=== PATIENT | female | born 1985 | race Caucasian/White ===

== ENCOUNTER 2016-10-30 07:57 | Emergency (ER) | payer SELFPAY ==
[~2016-10-30] VITALS: Ht 162.6 cm; Wt 68.0 kg
[2016-10-30 08:10] VITALS: BP 136/97
[2016-10-30] MEDS ORDERED: HYDROcodone-ACET 10/325MG TAB PO ONE (09:15)
== END 2016-10-30 09:48 | disposition home or self-care (01) ==
LOC: ER 07:57
DX: S42.302A Unspecified fracture of shaft of humerus, left arm, initial encounter for closed fracture (principal); W19.XXXA Unspecified fall, initial encounter; Y93.01 Activity, walking, marching and hiking; Y99.8 Other external cause status; Y92.89 Other specified places as the place of occurrence of the external cause

== ENCOUNTER 2021-01-23 17:59 | Emergency (ER) | payer SELFPAY ==
[~2021-01-23] VITALS: Ht 167.6 cm; Wt 90.7 kg
[2021-01-23] MEDS ORDERED: cloNIDine 0.1 mg/24hr 7 DAY PATCH TD ONE (19:00)
[2021-01-23] MEDS ORDERED: cloNIDine HCL 0.1 MG TAB ONE (20:56)
[2021-01-23] MEDS ORDERED: cloNIDine HCL 0.1 MG TAB PO ONE (21:30)
[2021-01-23 21:34] VITALS: BP 173/107
== END 2021-01-23 21:59 | disposition home or self-care (01) ==
LOC: ER 17:59
DX: R51.9 Headache, unspecified (principal); I10 Essential (primary) hypertension
CPT/HCPCS: 70450

== ENCOUNTER 2021-01-25 02:07 | Emergency (ER) | payer SELFPAY ==
[~2021-01-25] VITALS: Ht 167.6 cm; Wt 90.7 kg
[2021-01-25] MEDS ORDERED: KETOROLAC TROMETH 60MG/2ML VIAL IM ONE (03:30)
[2021-01-25] MEDS ORDERED: methylPREDNISolone SOD SUCC 125 MG/2 ML VL IM ONE (03:30)
[2021-01-25] MEDS ORDERED: ONDANSETRON ODT 4 MG TAB PO ONE (03:30)
[2021-01-25 03:54] VITALS: BP 146/94
== END 2021-01-25 04:51 | disposition home or self-care (01) ==
LOC: ER 02:07
DX: R51.9 Headache, unspecified (principal); R42 Dizziness and giddiness; I10 Essential (primary) hypertension; E66.9 Obesity, unspecified; Z68.32 Body mass index [BMI] 32.0-32.9, adult
CPT/HCPCS: 96372; 99284; J1885; J2930; Q0162

== ENCOUNTER 2021-03-24 11:08 | Emergency (ER) | payer SELFPAY ==
[~2021-03-24] VITALS: Ht 167.6 cm; Wt 90.7 kg
[2021-03-24 11:58] VITALS: BP 152/102
== END 2021-03-24 12:12 | disposition home or self-care (01) ==
LOC: ER 11:08
DX: I10 Essential (primary) hypertension (principal); Z76.0 Encounter for issue of repeat prescription

== ENCOUNTER 2023-10-07 15:20 | Emergency (ER) | payer OTHER ==
[~2023-10-07] VITALS: Ht 167.6 cm; Wt 84.8 kg
[2023-10-07 15:21] VITALS: BP 167/95; PULSE 80; RESP 18; O2SAT 98
[2023-10-07 16:08] LABS: Basophils # (auto) 0 10 ^3/uL (0-0.2); Eosinophils # (auto) 0.2 10 ^3/uL (0-0.8); Mean Corpuscular Volume 75.8 fL (80.0-100.0); Monocytes # (auto) 0.4 10 ^3/uL (0-1.3); Monocytes % (auto) 6.4 % (0.0-12.0); Neutrophils # (auto) 4.6 10 ^3/uL (1.6-8.6)
[2023-10-07 16:10] LABS: Basophils % (auto) 0.2 % (0.0-2.0); Eosinophils % (auto) 2.3 % (0.0-7.0); Hematocrit 32.8 % (36.0-46.0); Hemoglobin 10.1 g/dL (12.2-16.2); Lymphocytes # (auto) 1.6 10 ^3/uL (0.4-5.4); Mean Corpuscular Hemoglobin 23.3 pg (28.0-32.0); Mean Corpuscular Hgb Conc. 30.7 g/dL (32.0-36.0); Neutrophils % (auto) 67.1 % (37.0-80.0); Red Blood Cells 4.33 10^6/uL (4.0-5.20); White Blood Cell 6.8 10^3/uL (4.4-10.8)
[2023-10-07 16:19] LABS: Chloride 108 mmol/L (98-107); Potassium 3.8 mmol/L (3.5-5.1); Sodium 139 mmol/L (136-145)
[2023-10-07 16:20] LABS: Anion Gap 5 (5-15); Carbon Dioxide 26 mmol/L (20-30)
[2023-10-07 16:21] LABS: Calcium 9.2 mg/dL (8.5-10.1)
[2023-10-07 16:26] LABS: BUN/Creatinine Ratio 13.1 (10.0-20.0); Blood Urea Nitrogen 8 mg/dL (9-23); Glucose 100 mg/dL (74-106)
[2023-10-07] MEDS: cloNIDine HCL 0.1 MG TAB PO ONE ×2 (17:05→17:15)
[2023-10-07] MEDS: KETOROLAC TROMETH 60MG/2ML VIAL IM ONE (17:12)
== END 2023-10-07 19:13 | disposition left against medical advice (07) ==
LOC: ER 15:23
DX: I10 Essential (primary) hypertension (principal); R51.9 Headache, unspecified; Z98.890 Other specified postprocedural states
CPT/HCPCS: 36415; 80048; 84484; 85025; 96372; 99283; J1885

== ENCOUNTER 2023-12-04 23:08 | Emergency (ER) | payer OTHER ==
[~2023-12-04] VITALS: Ht 165.1 cm; Wt 160.0 kg
[2023-12-04 23:08] VITALS: BP 154/98; RESP 20; O2SAT 100
[2023-12-04 23:13] VITALS: PULSE 85
[2023-12-04 23:39] LABS: Basophils # (auto) 0 10 ^3/uL (0-0.2); Basophils % (auto) 0.5 % (0.0-2.0); Eosinophils # (auto) 0.2 10 ^3/uL (0-0.8); Hematocrit 33.9 % (36.0-46.0); Hemoglobin 10.7 g/dL (12.2-16.2); Lymphocytes # (auto) 1.9 10 ^3/uL (0.4-5.4); Lymphocytes % (auto) 29.2 % (10.0-50.0); Mean Corpuscular Hgb Conc. 31.7 g/dL (32.0-36.0); Mean Corpuscular Volume 75.5 fL (80.0-100.0); Monocytes # (auto) 0.4 10 ^3/uL (0-1.3); Monocytes % (auto) 5.9 % (0.0-12.0); Neutrophils # (auto) 4.1 10 ^3/uL (1.6-8.6); Neutrophils % (auto) 61.4 % (37.0-80.0); Nucleated Red Blood Cells % 0.1 %; Red Blood Cells 4.48 10^6/uL (4.0-5.20); Red Cell Distribution Width 17.6 % (11.8-14.3); White Blood Cell 6.6 10^3/uL (4.4-10.8)
[2023-12-04 23:54] LABS: Albumin 4.2 g/dL (3.2-4.8); Alkaline Phosphatase 91 U/L (46-116); Anion Gap 5 (5-15); Aspartate Aminotransferase 10 U/L (13-40); BUN/Creatinine Ratio 10.8 (10.0-20.0); Blood Urea Nitrogen 10 mg/dL (9-23); Calcium 8.9 mg/dL (8.7-10.4); Carbon Dioxide 26 mmol/L (20-30); Chloride 107 mmol/L (98-107); Glucose 110 mg/dL (74-106); Potassium 3.9 mmol/L (3.5-5.1); Sodium 138 mmol/L (136-145)
[2023-12-04 23:55] LABS: Alanine Aminotransferase < 9 U/L (7-40); Bilirubin, Total 0.9 mg/dL (0.2-1.0); Total Protein 7.2 g/dL (5.7-8.2)
== END 2023-12-05 01:06 | disposition left against medical advice (07) ==
LOC: ER 23:08
DX: R07.89 Other chest pain (principal); R11.0 Nausea; R51.9 Headache, unspecified; Z53.21 Procedure and treatment not carried out due to patient leaving prior to being seen by health care provider
CPT/HCPCS: 36415; 71045; 80053; 83880; 84484; 85025; 93005

== ENCOUNTER 2024-02-16 06:00 | Emergency (ER) | payer OTHER ==
[~2024-02-16] VITALS: Ht 167.6 cm; Wt 78.9 kg
[2024-02-16] MEDS: SODIUM CHLORIDE 0.9% 500 ML IV ONE (07:16)
[2024-02-16] MEDS: cefTRIAXone 1GM/50ML D5W 50 ML IV ONE (07:18)
[2024-02-16] MEDS: methylPREDNISolone SOD SUCC 125 MG/2 ML VL IV ONE (07:18)
[2024-02-16] MEDS: KETOROLAC TROMETH 30 MG/ML 1ML VIAL IV ONE (07:19)
[2024-02-16] MEDS: SODIUM CHL 0.9% 500 ML IV ONE (07:26)
[2024-02-16 07:29] VITALS: BP 149/103; PULSE 95; RESP 17; TEMP 98.4; O2SAT 100
[2024-02-16] MEDS: CLINDAMYCIN 900MG IV 50 ML IV ONE (07:37)
[2024-02-16 07:48] LABS: Rapid Strep A Screen-Throat Positive
[2024-02-16] MEDS ORDERED: PENI500T2 PO (07:52)
[2024-02-16] MEDS ORDERED: LIDO2SOL26 MT (07:52)
[2024-02-16] MEDS ORDERED: CLIN1CAP70 PO (07:52)
== END 2024-02-16 08:05 | disposition home or self-care (01) ==
LOC: ER 06:00
DX: J03.00 Acute streptococcal tonsillitis, unspecified (principal); H66.93 Otitis media, unspecified, bilateral; I10 Essential (primary) hypertension; Z98.890 Other specified postprocedural states; Z79.899 Other long term (current) drug therapy
CPT/HCPCS: 87880; 96365; 96367; 96375; 99284; J0696; J1885; J2919; J3490; J7040

== ENCOUNTER 2024-03-22 21:43 | Emergency (ER) | payer OTHER ==
[~2024-03-22] VITALS: Ht 165.1 cm; Wt 85.7 kg
[~2024-03-22 21:43] MED LIST: CLIN1CAP70 PO; LIDO2SOL26 MT; PENI500T2 PO
[2024-03-22 23:08] VITALS: BP 160/95; PULSE 104; RESP 19; TEMP 97.9; O2SAT 100
[2024-03-22] MEDS: DexAMETHasone SOD PHOS 10MG/1ML VIAL INJ IM ONE (23:21)
[2024-03-22] MEDS: KETOROLAC TROMETH 60MG/2ML VIAL IM ONE (23:21)
--- NOTE | 2024-03-23 00:16 | ED.PDOC ---
HPI (NEURO) HPI Comments THIS IS A 38-YEAR-OLD FEMALE PRESENTS TO THE ED CHIEF COMPLAINT OF HEADACHE. STATES REPORTS SHE HAD MIGRAINES. NOTES LAST 1 THAT WAS THIS BAD WAS NOT YEAR AGO. PATIENT STATES HEADACHE STARTED THIS A.M., HAS BEEN TAKING [id number] MEDICATIONS WITH 0 RELIEF. RELATED SYMPTOMS OF PHOTOSENSITIVITY AND NAUSEA. SHE DENIES FEVER, CHILLS, WEAKNESS, NUMBNESS, SLURRED SPEECH, WORSE HEADACHE OF HER LIFE. 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 Family History Family History: Reviewed,noncontributory to illness Social History Smoker: Non-Smoker Alcohol: Denies ETOH Use Drugs: Denies Drug Use Lives In: Home Constitutional: denies: chills, diaphoresis, fatigue, fever, malaise, sweats, weakness, others EENTM: denies: blurred vision, double vision, ear bleeding, ear discharge, ear drainage, ear pain, ear ringing, eye pain, eye redness, hearing loss, mouth pain, mouth swelling, nasal discharge, nose bleeding, nose congestion, nose pain, photophobia, tearing, throat pain, throat swelling, voice changes, others Respiratory: denies: cough, hemoptysis, orthopnea, SOB at rest, shortness of breath, SOB with excertion, stridor, wheezing, others Cardiovascular: denies: chest pain, dizzy spells, diaphoresis, Dyspnea on exertion, edema, irregular heart beat, left arm pain, lightheadedness, palpitations, PND, syncope, others Gastrointestinal: denies: abdomen distended, abdominal pain, blood streaked bowels, constipated, diarrhea, dysphagia, difficulty swallowing, hematemesis, melena, nausea, poor appetite, poor fluid intake, rectal bleeding, rectal pain, vomiting, others Genitourinary: denies: abnormal vagina bleeding, burning, dyspareunia, dysuria, flank pain, frequency, hematuria, incontinence, pain, , vagina discharge, urgency, others Neurological: reports: headache; denies: dizziness, fainting, left sided numbness, left sided weakness, numbness, paresthesia, pre-existing deficit, right sided numbness, right sided weakness, seizure, speech problems, tingling, tremors, weakness, others Musculoskeletal: denies: back pain, gout, joint pain, joint swelling, muscle pain, muscle stiffness, neck pain, others Integumetry: denies: bruises, change in color, change in hair/nails, dryness, laceration, lesions, lumps, rash, wounds, others Allergic/Immunocompromised: denies: Difficulty Healing, Frequent Infections, Hives, Itching, others Hematologic/Lymphatic: denies: anemia, blood clots, easy bleeding, easy bruising, swollen glands, others Endocrine: denies: excessive hunger, excessive sweating, excessive thirst, excessive urination, flushing, intolerance to cold, intolerance to heat, unexplained weight gain, unexplained weight loss, others Psychiatric: denies: anxiety, bipolar disorder, depression, hopeless, panic disorder, schizophrenia, sleepless, suicidal, others Physical Exam General Appearance: No Apparent Distress, Normal HEENT: Normal ENT Inspection, Pharynx Normal, TMs Normal Neck: Full Range of Motion, Non-Tender Respiratory: Lungs Clear, No Respiratory Distress, Normal Breath Sounds Cardiovascular: No Murmur, Normal Peripheral Pulses, Regular Rate/Rhythm Breast Exam: Deferred Gastrointestinal: Non Tender, Soft Genitalia: Deferred Pelvic: Deferred Rectal: Deferred Extremities: Normal range of motion Musculoskeletal : Apperance: Normal Neurologic: Alert, distributed energy systems consultant II-XII nml as Tested, No Motor Deficits, Normal Affect, Normal Mood, No Sensory Deficits Cerebellar Function: Normal Reflexes: Normal Skin: Dry, Normal Color, Warm Lymphatic: No Adenopathy Was a procedure done? Was a procedure done?: No Differential Diagnosis (SZ) Headache: Migraine, Sinusitis X-Ray, Labs, Meds, VS Vital Signs Date Time Temp Pulse Resp B/P (MAP) Pulse Ox O2 Delivery O2 Flow Rate FiO2 03/22/24 23:08 97.9 104 19 160/95 (116) 100 97.9 03/22/24 23:08 104 19 100 Room Air 03/22/24 22:22 97.3 92 16 157/89 (111) 97 Current Medications Medications (Trade) Dose Ordered Sig/Rosaura Route Start Time Stop Time Status Last Admin Dexamethasone Sodium Phosphate (Decadron Injection) 10 mg ONCE ONCE IM 03/22/24 23:15 03/22/24 23:16 DC 03/22/24 23:21 Ketorolac Tromethamine (Toradol Injection) 60 mg ONCE ONCE IM 03/22/24 23:15 03/22/24 23:16 DC 03/22/24 23:21 X-Ray, Labs, Meds, VS Comment PATIENT GIVEN TORADOL 60 MG IM AND DECADRON 10 MG IM. PATIENT REPORTS IMPROVEMENT IN SYMPTOMS AND FUNCTION STATES MIGRAINE IS 1/10 ON PAIN SCALE. PATIENT REQUESTING DISCHARGE AT THIS TIME SHE STATES SHE FEELS A LOT BETTER NOW THAN ON ARRIVAL IN THE ED. ADVISED TO FOLLOW UP WITH HER PCP IN 2-3 DAYS NECESSARY. ADVISED TO REST, INCREASE P.O. FLUIDS WITH ELECTROLYTES. ADVISED TO RETURN TO THE ER FOR WORST HEADACHE OF HER LIFE, NUMBNESS, WEAKNESS, SLURRED SPEECH, OR ANY FOCAL NEURO DEFICITS. PATIENT AGREES WITH DISCHARGE PLAN OF CARE. Time of 1ST Reevaluation: 00:15 Reevaluation 1ST: Improved Patient Education/Counseling: Diagnosis, Treatment, Prognosis, Need For Follow Up Family Education/Counseling: No Family Present Departure 1 Departure Time of Disposition: 00:15 Impression: Primary Impression: Migraine Qualified Codes: G43.919 - Migraine, unspecified, intractable, without status migrainosus Disposition: 01 HOME / SELF CARE / HOMELESS Condition: Stable Discharged With: Spouse Critical Care Note Critical Care Time?: No Stability Stability form required: ELLEN Morton Mar 23, 2024 00:16
== END 2024-03-23 00:27 | disposition home or self-care (01) ==
LOC: ER 21:43
DX: G43.909 Migraine, unspecified, not intractable, without status migrainosus (principal); I10 Essential (primary) hypertension; Z98.890 Other specified postprocedural states
CPT/HCPCS: 96372; 99284; J1100; J1885

== ENCOUNTER 2024-07-02 01:34 | Emergency (ER) | payer OTHER ==
[~2024-07-02] VITALS: Ht 167.6 cm; Wt 68.2 kg
[2024-07-02 01:50] VITALS: BP 155/94; PULSE 102; RESP 18; O2SAT 99
--- NOTE | 2024-07-02 02:12 | ED.PDOC ---
History of Present Illness HPI Comments 38 [id number] with a history of hypertension brought in by family complaining of dizziness, nausea and vomiting, onset this morning. She describes the dizziness as as if the room is spinning, and that the symptoms were worse with head movement and changing positions. She reports nausea but no vomiting. She denies any vision changes, syncope, focal weakness or numbness. She states she has a history of hypertension and has been noncompliant with medications for more than a year. Chief Complaint: Dizziness Time Seen by MD: 02:00 Primary Care Provider: LESVIAIES Reviewed Notes: Nurses Notes, Medications, Allergies Allergies: Coded Allergies: NO KNOWN ALLERGIES (Unverified , 01/23/21) Home Meds Active Scripts Lidocaine HCl (Mouth-Throat) (Lidocaine HCl Viscous) 2 % Marleni, 10 ML MT TID, #100 ML Prov:VERONIQUE GTZ 02/16/24 Clindamycin Hcl (Clindamycin Hcl) 300 Mg Cap, 1 CAP PO TID, #30 CAP Prov:VERONIQUE GTZ 02/16/24 Penicillin V Potassium (Veetids) 500 Mg Tab, 1 TAB PO QID, #28 TAB Prov:VERONIQUE GTZ 02/16/24 Information Source: Patient Mode of Arrival: Ambulatory Severity: Moderate Timing: Hours Duration: Since onset Prehospital treatment: None Past Medical History PAST MEDICAL HISTORY: HTN 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 Family History Family History: Reviewed,noncontributory to illness Social History Smoker: Non-Smoker Alcohol: Denies ETOH Use Drugs: Denies Drug Use Lives In: Home All Other Systems: Reviewed and Negative (Comprehensive systems review obtained and negative except for what is stated in the HPI.) Physical Exam General Appearance: Mild Distress HEENT: PERRL/EOMI, Other (Pupils and face symmetric, moist mucous membranes.) Neck: Full Range of Motion, Normal Inspection Respiratory: Lungs Clear, No Accessory Muscle Use, No Respiratory Distress, Nor mal Breath Sounds Cardiovascular: No Edema, No JVD, Regular Rate/Rhythm Breast Exam: Deferred Gastrointestinal: Non Tender, Soft Genitalia: Deferred Pelvic: Deferred Rectal: Deferred Extremities: Normal inspection, Normal range of motion, Non-tender, No pedal edema Neurologic: Alert (Oriented x4), Normal Affect, Normal Mood, Other (Ambulatory without difficulty. No gross focal deficit.) Cerebellar Function: NOT DONE Reflexes: NOT DONE Skin: Dry, Normal Color, Warm Lymphatic: NOT DONE Was a procedure done? Was a procedure done?: No Differential Dx Considerations may include: Vertigo, CVA, TIA, hypertensive urgency/emergency, arrhythmia, among others X-Ray, Labs, Meds, VS Vital Signs Date Time Temp Pulse Resp B/P (MAP) Pulse Ox O2 Delivery O2 Flow Rate FiO2 07/02/24 01:50 97.4 102 18 155/94 (114) 99 Lab Test 07/02/24 02:23 Range/Units White Blood Count 7.3 4.4-10.8 10^3/uL Red Blood Count 5.18 4.0-5.20 10^6/uL Hemoglobin 11.7 L 12.2-16.2 g/dL Hematocrit 38.1 36.0-46.0 % Mean Corpuscular Volume 73.4 L 80.0-100.0 fL Mean Corpuscular Hemoglobin 22.6 L 28.0-32.0 pg Mean Corpuscular Hemoglobin Concent 30.7 L 32.0-36.0 g/dL Red Cell Distribution Width 17.8 H 11.8-14.3 % Platelet Count 363 140-450 10^3/uL Mean Platelet Volume 7.2 6.9-10.8 fL Neutrophils (%) (Auto) 88.9 H 37.0-80.0 % Lymphocytes (%) (Auto) 7.3 L 10.0-50.0 % Monocytes (%) (Auto) 2.9 0.0-12.0 % Eosinophils (%) (Auto) 0.7 0.0-7.0 % Basophils (%) (Auto) 0.2 0.0-2.0 % Neutrophils # (Auto) 6.5 1.6-8.6 10 ^3/uL Lymphocytes # (Auto) 0.5 0.4-5.4 10 ^3/uL Monocytes # (Auto) 0.2 0-1.3 10 ^3/uL Eosinophils # (Auto) 0 0-0.8 10 ^3/uL Basophils # (Auto) 0 0-0.2 10 ^3/uL Nucleated Red Blood Cells 0.0 % Sodium Level 138 136-145 mmol/L Potassium Level 3.8 3.5-5.1 mmol/L Chloride Level 104 98-107 mmol/L Carbon Dioxide Level 25 20-31 mmol/L Anion Gap 9 5-15 Blood Urea Nitrogen 12 9-23 mg/dL Creatinine 0.73 0.550-1.02 mg/dL Glomerular Filtration Rate Calc 107 >90 mL/min BUN/Creatinine Ratio 16.4 10.0-20.0 Serum Glucose 135 H 74-106 mg/dL Calcium Level 9.8 8.7-10.4 mg/dL Troponin I High Sensitivity 3 L </=34 ng/L B-Type Natriuretic Peptide 32.74 0-100 pg/mL Beta HCG, Quantitative 0.9 L 1.5-4.2 mIU/mL [place] [address] Ph: [phone] DIAGNOSTIC IMAGING Diagnostic Imaging Report : [id number] Signed PATIENT: JUSTIN CARTER ACCT: [id number] UNIT: [id number] : 1985 LOC: ER ROOM / BED: / AGE / SEX: 38 / F ADM STATUS: REG ER SERVICE 9 ORDERING PHYSICIAN: LIDA ZAMORA MD PROCEDURE(s): HWOCT - HEAD WITHOUT CONTRAST REASON: dizzy, n/v ORDER NUMBER(s): [id number], ACCESSION NUMBER(s): [id number] EXAM: CT HEAD WITHOUT CONTRAST INDICATION: dizzy, n/v TECHNIQUE: CT of the head without intravenous contrast. Radiation Dose Information: CT Dose: CTDI volume is 56.61 mGy. Dose-length product is 907.46 mGy*cm The dose indicators for CT are the volume Computed Tomography (CT) Dose Index (CTDIvol) and the Dose Length Product (DLP), and are measured in units of mGy and mGy-cm, respectively. These indicators are not patient dose, but values generated from the CT scanner acquisition factors. The report includes radiation exposure data for exposures received during this examination. COMPARISON: HEAD WITHOUT CONTRAST on DOS: 01/23/21 FINDINGS: There is no evidence of acute intracranial hemorrhage, extra-axial collection, mass effect, midline shift, herniation or hydrocephalus. The ventricles, sulci and cisterns are age appropriate. The cisneros-white differentiation is intact. The visualized paranasal sinuses and mastoid air cells are clear. The surrounding soft tissues and osseous structures are unremarkable. IMPRESSION: 1. No acute intracranial abnormality. ATED BY: CAROL CALDERON MD DICTATED DATE/TIME: 07/02/24233 SIGNED BY: CAROL CALDERON MD SIGNED DATE/TIME: 07/02/24233 CC: X-Ray, Labs, Meds, VS Comment 38-year-old female with a history of hypertension, noncompliant with medications, brought in by family for evaluation of dizziness described as like the room is spinning," associated with nausea. Vitals Remarkable for heart rate 102, BP 155/94 Exam remarkable for reproducible symptoms with head movement and changing positions. Rhythm strip independently interpreted by me: Sinus tach, rate 102, no ectopy. CT head unremarkable CBC, metabolic panel, BNP, hCG and troponin unremarkable for any abnormality of acute significance Following was ordered for the patient: Meclizine 50 mg p.o., Zofran ODT 4 mg p.o. Patient was called multiple times for re-evaluation, however there was no answer. It was assumed the patient had eloped from the ED. Time of 1ST Reevaluation: 02:30 Reevaluation 1ST: Unchanged Patient Education/Counseling: Diagnosis, Treatment Family Education/Counseling: No Family Present Departure 1 Departure Time of Disposition: 04:30 Impression: Primary Impression: Positional vertigo Disposition: 07 LEFT AWOL/ELOPED Condition: Fair Critical Care Note Critical Care Time?: No Stability Stability form required: No Heart Score Heart Score: Heart Score Response (Comments) Value History N/A 0 EKG N/A 0 Age N/A 0 Risk Factors N/A 0 Troponin N/A 0 Total 0 I personally scribed for LIDA ZAMORA MD ([email or web address]) on 07/02/24 at 02:12. Electronically submitted by Chris Fischer ([email or web address]). I personally scribed for LIDA ZAMORA MD ([email or web address]) on 07/02/24 at 03:11. Electronically submitted by Chris Fischer ([email or web address]). LIDA ZAMORA MD Jul 02, 2024 02:12
[2024-07-02] MEDS ORDERED: ONDANSETRON ODT 4 MG TAB PO ONE (02:15)
[2024-07-02] MEDS ORDERED: MECLIZINE HCL 25 MG TAB PO ONE (02:15)
--- NOTE | 2024-07-02 02:35 | DVH ---
EXAM: CT HEAD WITHOUT CONTRAST INDICATION: dizzy, n/v TECHNIQUE: CT of the head without intravenous contrast. Radiation Dose Information: CT Dose: CTDI volume is 56.61 mGy. Dose-length product is 907.46 mGy*cm The dose indicators for CT are the volume Computed Tomography (CT) Dose Index (CTDIvol) and the Dose Length Product (DLP), and are measured in units of mGy and mGy-cm, respectively. These indicators are not patient dose, but values generated from the CT scanner acquisition factors. The report includes radiation exposure data for exposures received during this examination. COMPARISON: HEAD WITHOUT CONTRAST on DOS: 01/23/21 FINDINGS: There is no evidence of acute intracranial hemorrhage, extra-axial collection, mass effect, midline s hift, herniation or hydrocephalus. The ventricles, sulci and cisterns are age appropriate. The cisneros-white differentiation is intact. The visualized paranasal sinuses and mastoid air cells are clear. The surrounding soft tissues and osseous structures are unremarkable. IMPRESSION: 1. No acute intracranial abnormality.
[2024-07-02 02:47] LABS: Basophils # (auto) 0 10 ^3/uL (0-0.2); Basophils % (auto) 0.2 % (0.0-2.0); Eosinophils # (auto) 0 10 ^3/uL (0-0.8); Eosinophils % (auto) 0.7 % (0.0-7.0); Hematocrit 38.1 % (36.0-46.0); Hemoglobin 11.7 g/dL (12.2-16.2); Lymphocytes # (auto) 0.5 10 ^3/uL (0.4-5.4); Lymphocytes % (auto) 7.3 % (10.0-50.0); Mean Corpuscular Hemoglobin 22.6 pg (28.0-32.0); Mean Corpuscular Hgb Conc. 30.7 g/dL (32.0-36.0); Mean Corpuscular Volume 73.4 fL (80.0-100.0); Monocytes # (auto) 0.2 10 ^3/uL (0-1.3); Monocytes % (auto) 2.9 % (0.0-12.0); Neutrophils # (auto) 6.5 10 ^3/uL (1.6-8.6); Neutrophils % (auto) 88.9 % (37.0-80.0); Platelet Count (auto) 363 10^3/uL (140-450); Red Blood Cells 5.18 10^6/uL (4.0-5.20); Red Cell Distribution Width 17.8 % (11.8-14.3); White Blood Cell 7.3 10^3/uL (4.4-10.8)
[2024-07-02 02:58] LABS: Chloride 104 mmol/L (98-107); Potassium 3.8 mmol/L (3.5-5.1); Sodium 138 mmol/L (136-145)
[2024-07-02 02:59] LABS: Anion Gap 9 (5-15); Calcium 9.8 mg/dL (8.7-10.4); Carbon Dioxide 25 mmol/L (20-31)
[2024-07-02 03:04] LABS: BUN/Creatinine Ratio 16.4 (10.0-20.0); Blood Urea Nitrogen 12 mg/dL (9-23)
[2024-07-02 03:15] LABS: Glucose 135 mg/dL (74-106)
== END 2024-07-02 04:32 | disposition left against medical advice (07) ==
LOC: ER 01:34
DX: H81.10 Benign paroxysmal vertigo, unspecified ear (principal); I10 Essential (primary) hypertension; Z79.899 Other long term (current) drug therapy
CPT/HCPCS: 36415; 70450; 80048; 83880; 84484; 84702; 85025

== ENCOUNTER 2024-07-02 10:26 | Emergency (ER) | payer OTHER ==
[~2024-07-02] VITALS: Ht 165.1 cm; Wt 68.0 kg
--- NOTE | 2024-07-02 10:46 | ED.PDOC ---
History of Present Illness HPI Comments 38 [id number] with a history of hypertension brought in by EMS complaining of dizziness, nausea and vomiting, onset yesterday. She describes the dizziness as as if the room is spinning, and that the symptoms were worse with head movement and changing positions. She reports nausea but no vomiting. She denies any vision changes, syncope, focal weakness or numbness. She states she has a history of hypertension and has been noncompliant with medications for more than a year. Patient mentions that she was seen here earlier this morning but eloped due to the wait time. [place], patient is [place] and does methamphetamine. Time Seen by MD: 10:36 Primary Care Provider: DENIES Reviewed Notes: Medications, Allergies Allergies: Coded Allergies: NO KNOWN ALLERGIES (Unverified , 01/23/21) Home Meds Active Scripts Lidocaine HCl (Mouth-Throat) (Lidocaine HCl Viscous) 2 % Marleni, 10 ML MT TID, #100 ML Prov:VERONIQUE GTZ 02/16/24 Clindamycin Hcl (Clindamycin Hcl) 300 Mg Cap, 1 CAP PO TID, #30 CAP Prov:VERONIQUE GTZ 02/16/24 Penicillin V Potassium (Veetids) 500 Mg Tab, 1 TAB PO QID, #28 TAB Prov:VERONIQUE GTZ 02/16/24 Information Source: Patient Mode of Arrival: EMS Severity: Moderate Timing: Hours Duration: Since onset Prehospital treatment: None Past Medical History PAST MEDICAL HISTORY: HTN 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 Family History Family History: Reviewed,noncontributory to illness Social History Smoker: Non-Smoker Alcohol: Denies ETOH Use Drugs: Methamphetamine Lives In: Homeless Constitutional: denies: chills, diaphoresis, fatigue, fever, malaise, sweats, weakness, others EENTM: denies: blurred vision, double vision, ear bleeding, ear discharge, ear drainage, ear pain, ear ringing, eye pain, eye redness, hearing loss, mouth pain, mouth swelling, nasal discharge, nose bleeding, nose congestion, nose pain, photophobia, tearing, throat pain, throat swelling, voice changes, others Respiratory: denies: cough, hemoptysis, orthopnea, SOB at rest, shortness of breath, SOB with excertion, stridor, wheezing, others Cardiovascular: denies: chest pain, dizzy spells, diaphoresis, Dyspnea on exertion, edema, irregular heart beat, left arm pain, lightheadedness, palpitations, PND, syncope, others Gastrointestinal: denies: abdomen distended, abdominal pain, blood streaked bowels, constipated, diarrhea, dysphagia, difficulty swallowing, hematemesis, melena, nausea, poor appetite, poor fluid intake, rectal bleeding, rectal pain, vomiting, others Genitourinary: denies: abnormal vagina bleeding, burning, dyspareunia, dysuria, flank pain, frequency, hematuria, incontinence, pain, , vagina discharge, urgency, others Neurological: reports: dizziness; denies: fainting, headache, left sided numbness, left sided weakness, numbness, paresthesia, pre-existing deficit, right sided numbness, right sided weakness, seizure, speech problems, tingling, tremors, weakness, others Musculoskeletal: denies: back pain, gout, joint pain, joint swelling, muscle pain, muscle stiffness, neck pain, others Integumetry: denies: bruises, change in color, change in hair/nails, dryness, laceration, lesions, lumps, rash, wounds, others Allergic/Immunocompromised: denies: Difficulty Healing, Frequent Infections, Hives, Itching, others Hematologic/Lymphatic: denies: anemia, blood clots, easy bleeding, easy bruising, swollen glands, others Endocrine: denies: excessive hunger, excessive sweating, excessive thirst, excessive urination, flushing, intolerance to cold, intolerance to heat, unexplained weight gain, unexplained weight loss, others Psychiatric: denies: anxiety, bipolar disorder, depression, hopeless, panic disorder, schizophrenia, sleepless, suicidal, others All Other Systems: Reviewed and Negative Physical Exam General Appearance: Moderate Distress, Normal HEENT: Normal ENT Inspection, Pharynx Normal, TMs Normal Neck: Full Range of Motion, Non-Tender, Normal, Normal Inspection Respiratory: Chest Non-Tender, Lungs Clear, No Accessory Muscle Use, No Respiratory Distress, Normal Breath Sounds Cardiovascular: No Edema, No JVD, No Murmur, No Gallop, Normal Peripheral Pulses, Regular Rate/Rhythm Breast Exam: Deferred Gastrointestinal: No Organomegaly, Non Tender, No Pulsatile Mass, Normal Bowel Sounds, Soft Genitalia: Deferred Pelvic: Deferred Rectal: Deferred Extremities: No calf tenderness, Normal capillary refill, Normal inspection, Normal range of motion, Non-tender, No pedal edema Musculoskeletal : Apperance: Normal Neurologic: Alert, visitor services coordinator II-XII nml as Tested, No Motor Deficits, Normal Affect, Normal Mood, No Sensory Deficits Cerebellar Function: NOT DONE Reflexes: NOT DONE Skin: Dry, Normal Color, Warm Peripheral Pulses: 3+ Radial (R), 3+ Radial (L) Lymphatic: No Adenopathy Was a procedure done? Was a procedure done?: No Differential Dx Considerations may include: Drug use Electrolyte imbalance X-Ray, Labs, Meds, VS Vital Signs Date Time Temp Pulse Resp B/P (MAP) Pulse Ox O2 Delivery O2 Flow Rate FiO2 07/02/24 10:45 98.2 97 20 171/110 (130) 99 Patient alert. Generalized symptoms. Moving all extremities. Vitals stable. Blood pressure elevated. Blood pressure elevation possibly from drug use. Reviewed her previous visit. CT scan of the head reviewed does not show any acute changes. CBC reviewed does not show any acute changes. Explained to the patient. Was told to follow up with her primary care physician. Was told to come back if there is any problem. Time of 1ST Reevaluation: 11:06 Reevaluation 1ST: Improved Patient Education/Counseling: Diagnosis, Treatment, Prognosis Family Education/Counseling: Diagnosis, Treatment, Prognosis Departure 1 Departure Time of Disposition: 12:03 Impression: Primary Impression: Autonomic disorder Disposition: 01 HOME / SELF CARE / HOMELESS Condition: Good Discharged With: Self Critical Care Note Critical Care Time?: No Stability Stability form required: No Heart Score Heart Score: Heart Score Response (Comments) Value History N/A 0 EKG N/A 0 Age N/A 0 Risk Factors N/A 0 Troponin N/A 0 Total 0 I personally scribed for MARIELLE LEVY MD ([email or web address]) on 07/02/24 at 10:46. Electronically submitted by Michael Estes ([email or web address]). MARIELLE LEVY MD Jul 02, 2024 10:46
[2024-07-02 13:30] VITALS: BP 159/103; PULSE 101; RESP 20; TEMP 98.8; O2SAT 100
[2024-07-02] MEDS: cloNIDine HCL 0.1 MG TAB PO ONE (13:55)
== END 2024-07-02 14:47 | disposition home or self-care (01) ==
LOC: ER 10:26 → EDBD 10:26 → ER 14:47
DX: G90.9 Disorder of the autonomic nervous system, unspecified (principal); I10 Essential (primary) hypertension; R42 Dizziness and giddiness; R11.2 Nausea with vomiting, unspecified; Z59.00 Homelessness unspecified